=== PATIENT | female | born 1955 | race Caucasian/White ===

== ENCOUNTER 2016-08-31 08:49 | Observation (INO) | payer MEDICAID, OTHER ==
[~2016-08-31] VITALS: Ht 160 cm; Wt 43.2 kg
[2016-08-31] VITALS (12 sets, daily range): BP systolic 135–244; BP diastolic 89–126; PULSE 72–114; RESP 12–20; O2SAT 94–99
[2016-08-31] MEDS ORDERED: ASPI-973 PO (09:06)
[2016-08-31] MEDS ORDERED: FOLI1TAB18 PO (09:06)
[2016-08-31 09:18] LABS: BASOPHILS % (AUTO) 0.2 % (0-3); EOSINOPHILS % (AUTO) 0.3 % (0-5); Mean Corpuscular Volume 97.2 fL (81-100); NEUTROPHILS % (AUTO) 65.1 % (40-74); Platelet Count 451 bil/L (150-400)
[2016-08-31] MEDS ORDERED: Multivitamin w/Vit K Inj 10 ML, Thiamine Inj 100 MG, Folic Acid Inj 1 MG, Magnesium Sul... IV ONE ×5 (09:34)
--- NOTE | 2016-08-31 09:48 | DRSVH ---
PROCEDURE: CT BRAIN WITHOUT CONTRAST ([id number]) INDICATIONS: Eval for bleed. head injury from fall. TECHNIQUE: Noncontrast 4.5 mm thick angled axial sections acquired from the foramen magnum to the vertex, with c oronal reformats. COMPARISON: None. FINDINGS: Image quality: Excellent. CSF spaces: Basal cisterns are patent. No extra-axial fluid collections. The ventricles are symmet jessi in size and shape. Brain: There is an old lacunar infarct in the left basal ganglia. No intracranial bleeds or masses. There is cerebral volume loss for age, with resultant ventricular and sulcal prominence. There are periventricular and deep white matter chronic small vessel ischemic changes. There is intracranial i nternal carotid artery atherosclerosis. Skull and face: Calvarium and visualized facial bones appear intact, without suspicious lesions. Sinuses: Visualized sinuses and mastoids are clear. IMPRESSION: 1. No acute intracranial abnormalities. No intracranial bleed. 2. An old lacunar infarct left basal ganglia. 3. Moderate cerebral volume loss and chronic microvascular ischemic changes. Dictated by: Mario Valadez M.D. on 08/31/2016 at 9:43 Approved by: Mario Valadez M.D. on 08/31/2016 at 9:47
[2016-08-31 09:51] LABS: TROPONIN T < 0.010 ug/L (0.0-0.011)
[2016-08-31 09:53] LABS: Magnesium 2.2 mg/dL (1.6-2.6)
--- NOTE | 2016-08-31 10:20 | DRSVH ---
PROCEDURE: X-RAY CHEST ONE VIEW, PORTABLE ([id number]) INDICATIONS: SHORTNESS OF BREATH TECHNIQUE: One view of the chest was acquired. COMPARISON: None. FINDINGS: Surgical changes and devices: None. Lungs and pleura: No pleural effusions or pneumothorax. Mild apical pleural thickening. Lungs are hy perexpanded suggesting COPD. No focal infiltrate. Left nipple shadow. Mediastinum: Mediastinal contours appear normal. Heart size is normal. Aortic calcifications. Bones and chest wall: No suspicious bony lesions. Overlying soft tissues appear unremarkable. IMPRESSION: 1. Probable chronic obstructive pulmonary disease. 2. No acute cardiopulmonary abnormality. Dictated by: Martin Wang M.D. on 08/31/2016 at 10:18 Approved by: Martin Wang M.D. on 08/31/2016 at 10:19
[2016-08-31 10:29] LABS: INR 0.94 ratio
[2016-08-31] MEDS ORDERED: Alum-Mag Hydrox-Simeth 30 mL Suspension PO PRN ×2 (14:35→14:40)
[2016-08-31] MEDS ORDERED: Ondansetron 2 mg/mL 2 mL Inj IVPUSH PRN ×2 (14:35→14:40)
[2016-08-31] MEDS ORDERED: Polyethylene Glycol (PEG) 17 Gm Powder PO PRN (14:40)
[2016-08-31 14:58] LABS: APPEARANCE,URINE HAZY (CLEAR,HAZY); COLOR,URINE YELLOW (YELLOW); OCCULT BLOOD,URINE NEGATIVE (NEGATIVE); UROBILINOGEN,URINE NORMAL (NORMAL)
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
[2016-08-31] MEDS: 0.9% Sodium Chloride 1,000 ML IV SCH (15:16)
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
[2016-08-31 16:28] LABS: Phosphorus 3.3 mg/dL (2.5-4.9)
[2016-08-31] MEDS ORDERED: chlordiazePOXIDE 25 mg Capsule PO PRN (16:50)
[2016-08-31] MEDS ORDERED: Potassium Chloride 20 mEq SR Tablet PO ONE (17:10)
[2016-08-31] MEDS ORDERED: Albuterol 2.5 mg/3 mL Inhalation Solution NEB PRN (20:00)
[2016-09-01] VITALS (7 sets, daily range): BP systolic 152–174; BP diastolic 102–115; PULSE 70–80; RESP 16–20; O2SAT 97–100
[2016-09-01] MEDS: 0.9% Sodium Chloride 1,000 ML IV SCH ×2 (06:25→08:44)
[2016-09-01 07:14] LABS: Vitamin B12 1145 pg/mL (211-946)
[2016-09-01] MEDS ORDERED: Thiamine Inj 100 MG in Dextrose 5% 50 ML IV SCH (08:30)
[2016-09-01 08:31] LABS: BASOPHILS % (AUTO) 0.4 % (0-3); EOSINOPHILS % (AUTO) 1.6 % (0-5); MONOCYTES % (AUTO) 9.7 % (4-12); Mean Corpuscular Hemoglobin 33.4 pg (27.0-35.0); NEUTROPHILS % (AUTO) 59.1 % (40-74); Platelet Count 382 bil/L (150-400)
[2016-09-01 10:10] LABS: Hepatitis A Antibody IgM Negative (Negative); Hepatitis B Core Antibody IgM Negative (Negative)
--- NOTE | 2016-09-01 10:25 | PCM.PNMED ---
Subjective Date of Service Sep 01, 2016 Subjective Patient states she is feeling better today. She states she had tremors earlier this morning. Good appetite. Ambulates with assist. Patient was in sinus rhythm throughout the night. Will discontinue telemetry at this point. No symptoms of alcohol withdrawal. Exam Vital Signs Vital Sign - Last Date Time Temp Pulse Resp B/P Pulse Ox O2 Delivery O2 Flow Rate FiO2 09/01/16 08:25 36.6 75 16 174/104 99 Room Air Intake and Output 08/31/16 08/31/16 09/01/16 Cumulative From/Thru 15:00 23:00 07:00 08/31/16 08:51 - 09/01/16 06:16 Intake Total 415 ml 1469 ml 1884 ml Output Total 1050 ml 1850 ml 2900 ml Balance -635 ml -381 ml -1016 ml Intake Oral 360 ml 636 ml 996 ml IV Total 55 ml 833 ml 888 ml Output Urine Total 1050 ml 1850 ml 2900 ml # Bowel Movements 1 1 Exam General: Pleasant, older than stated age, frail female in no acute distress, appropriately interactive HEENT: Normocephalic, atraumatic. Anicteric sclerae Neck: Supple, no lymphadenopathy or thyromegaly. Cardiovascular: Regular rate and rhythm with no murmurs, rubs, or gallops appreciated Pulmonary: Poor respiratory effort, clear to auscultation bilaterally with no crackles, wheezes, or rhonchi Abdomen: Soft, non-tender, no rebound/guarding, no hepatosplenomegaly or masses appreciated, bowel tones hypoactive Extremities: No clubbing, cyanosis, edema Neurological: Cranial nerves grossly intact. Normal muscle strength, tone, and bulk, gait is not tested Psychiatric: Normal mood and affect. Alert and oriented to person, place, and time Lab and Diagnostics Lipid panel: Cholesterol 255, LDL 125 Hb A1c 5.9 Phosphorous 3 Calcium 9.2 Total creatine kinase 69 Ammonia 40 Vitamin B12 1145 AST 55 ALT 38 Result Diagram: 09/01/16 0810 09/01/16 0810 X-Rays, CTs and MRIs X-RAY CHEST ONE VIEW, PORTABLE IMPRESSION: 1. Probable chronic obstructive pulmonary disease. 2. No acute cardiopulmonary abnormality. Dictated and approved by by: Martin Wang M.D. on 08/31/2016 at 10:18 CT BRAIN WITHOUT CONTRAST IMPRESSION: 1. No acute intracranial abnormalities. No intracranial bleed. 2. An old lacunar infarct left basal ganglia. 3. Moderate cerebral volume loss and chronic microvascular ischemic changes. Dictated and approved by: Mario Valadez M.D. on 08/31/2016 at 9:43 12-lead ECG Sinus tachycardia, normal axis, Rate 105, QTC 471, biatrial enlargement, left ventricular hypertrophy, old anterior infarct. No signs of acute infarct or ischemia. Assessment & Plan Jyoti aDn is a 61-year-old female with active history of alcohol dependence who presents with two syncopal episodes, weakness, and cough. Hospital day 2. 1. Alcohol dependence, present on admission. Active -Daily alcohol use for years with multiple attempts of quitting in the past -No alcohol withdrawal symptoms at the moment -[facility] protocol -Labs: phosphorous, CPK, ammonia, Vitamin B12, acute hepatitis panel -Multivitamin by mouth daily -Folic acid 1 mg by mouth daily -Thiamine 100 mg intravenous daily x 3 days -Librium 25 mg by mouth q6h PRN -Normal saline intravenous at the rate of 100 ml/hr 2. Hypertensive urgency, present on admission. Improving -Blood pressure 244/126 in Emergency Department, 152-174/102/104 this morning -History of being on lisinopril in the past, which was not tolerated by the patient because of the cough -Start labetalol,100 mg by mouth twice a day -Continue monitor blood pressure 3. Shortness of breath, present on admission. Active -Reported cough and difficulties breathing over the last few weeks -Chest x-ray suggestive of probable chronic obstructive pulmonary disease -Albuterol 2 puffs inhaled, every 4 hours as needed -Supplemental oxygen as needed 4. Hypokalemia, present on admission. Active -Potassium chloride, 20 meq by mouth with food daily -Monitor labs 5. Transaminitis, present on admission. Improving -Most likely due to chronic alcohol use -AST and ALT improving -Outpatient follow up 6. Elevated glucose level, present on admission. Resolved -Blood glucose of 174 on admission; No history of diabetes -Hb A1c and lipid panel -Continue to monitor 7. Tobacco dependence, present on admission, active -Nicotine patch, 21 mg every day -Smoking cessation consultation Patient Status: Patient was admitted under inpatient status with expected length of stay greater than 2 midnights due to severity of presenting symptoms, complexity of treatment plan, and risk of adverse event. GI Prophylaxis: H2 paola VTE Prophylaxis: SCDs VTE Mechanical Devices: Intermittant Pneumatic CD Resuscitation Status: CPR: Attempt Resuscitation Attending Statement The patient was seen and examined together with Dr. Pereyra on 09/01/2016 and I agree with the history, exam and plan as outlined in the note above. . July Pereyra DO Sep 01, 2016 10:25 Brcie Vences MD Sep 03, 2016 17:45
--- NOTE | 2016-09-01 16:17 | PCM.DIMED ---
July Pereyra DO 09/01/16 1617: Discharge Instructions Date of Service Sep 01, 2016 Dates of Hospitalization Aug 31, 2016 at 14:20 Discharge Diagnosis Discharge Diagnosis 1. Alcohol dependence, present on admission. Active 2. Hypertensive urgency, present on admission. Improving 3. Shortness of breath, present on admission. Improving 4. Hypokalemia, present on admission. Improving 5. Transaminitis, present on admission. Improving 6. Elevated glucose level, present on admission. Resolved 7. Tobacco dependence, present on admission. Active Medication Instructions 1. To control high blood pressure please take labetalol, 100 mg by mouth twice a day. 2. For depression please take wellbutrin, 100 mg by mouth twice a day for 3 days , then increase to 100 mg three times a day. If you develop homicidal or suicidal ideations, depression exacerbation, leti, seizures, etc. please stop the medication immediately and call your primary care provider. 3. For alcohol withdrawal, take librium, 25 mg every 6 hours as needed. 4. Continue nicotine patches, 21 mg daily for two weeks. 5. Please take multivitamins daily. When you establish care with a new primary care provider at the [facility] within the next week or two, make sure you discuss all new medications you have been started on at the hospital. Your new primary care provider will be prescribing you these new medications as needed. Diet No restrictions Activity No restrictions Call your provider Fever or Chills, Shortness of breath, Bleeding, Chest pain, Vomitting, Excessive diarrhea, Weakness (unilateral) Patient Instructions Follow-up with PCP in: 1 week ([facility]) Additional Information When you established care with a primary care provider, please ask your doctor to assist you with alcoholism treatment. Brice Vences MD 09/03/16 1745: Discharge Instructions Attending's Statement The patient was seen and examined together with Dr. Pereyra on 09/01/2016 and I agree with the history, exam and plan as outlined in the note above. . July Pereyra DO Sep 01, 2016 16:17 Brice Vences MD Sep 03, 2016 17:45
[2016-09-01] MEDS ORDERED: LABE100T4 PO (16:21)
[2016-09-01] MEDS ORDERED: BUPR100T7 PO ×2 (16:22→16:28)
[2016-09-01] MEDS ORDERED: CHLO25CA10 PO (16:24)
[2016-09-01] MEDS ORDERED: NICO1PAT6 TRANSDERM (16:26)
[2016-09-01] MEDS ORDERED: MULT-1018 PO (16:27)
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
== END 2016-09-01 16:38 | disposition home or self-care (01) ==
LOC: SED 08:49 → INTOOBSV 14:20 → PCC 14:20 → OBSVTOIN 14:20 → PCC 14:34
PROVIDERS: ADMIT Hospitalist; ATTEND Internal Medicine
DX: I16.0 Hypertensive urgency (principal); R55 Syncope and collapse; F17.210 Nicotine dependence, cigarettes, uncomplicated; E87.6 Hypokalemia; R73.9 Hyperglycemia, unspecified; F10.20 Alcohol dependence, uncomplicated; R06.02 Shortness of breath
CPT/HCPCS: 36415; 70450; 71010; 80053; 80061; 81000; 82140; 82550; 82607; 82948; 83036; 83735; 84100; 84484; 85025; 85610; 86705; 86709; 87086; 87088; 87340; 87341; 93005; 96374; 96375; 96376; 97162; 99285; G0378; G0472; G0480; J2060; J3475; J7030

== ENCOUNTER 2016-09-23 13:33 | Emergency (ER) | payer OTHER ==
[~2016-09-23] VITALS: Ht 160 cm; Wt 105.0 kg
[~2016-09-23 13:33] MED LIST: ASPI-973 PO; BUPR100T7 PO; CHLO25CA10 PO; FOLI1TAB18 PO; LABE100T4 PO; MULT-1018 PO; NICO1PAT6 TRANSDERM
[2016-09-23 14:00] VITALS: BP 152/98; PULSE 102; RESP 16; O2SAT 96
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
== END 2016-09-23 16:06 | disposition home or self-care (01) ==
LOC: SED 13:33
DX: F10.129 Alcohol abuse with intoxication, unspecified (principal); F32.9 Major depressive disorder, single episode, unspecified; S00.211A Abrasion of right eyelid and periocular area, initial encounter; W54.8XXA Other contact with dog, initial encounter; Y93.89 Activity, other specified; Y92.89 Other specified places as the place of occurrence of the external cause; Y99.8 Other external cause status; F17.200 Nicotine dependence, unspecified, uncomplicated; Z79.82 Long term (current) use of aspirin; Z88.8 Allergy status to other drugs, medicaments and biological substances

== ENCOUNTER 2016-12-06 14:06 | Day surgery (SDC) | payer OTHER ==
[~2016-12-06] VITALS: Ht 160 cm; Wt 46.7 kg
[~2016-12-06 14:06] MED LIST changes: +0.9% Sodium Chloride 1,000 ML IV SCH; +LOSA25TA21 PO; +SERT20OR6 PO; +Sodium Chloride LOK Flush 10 mL Syringe IV PRN; +fentaNYL-PF 50 mCg/mL 2 mL Inj IVPUSH PRN
[2016-12-06] MEDS ORDERED: GABA-500 PO (14:55)
[2016-12-06] MEDS ORDERED: ALBU18HF INH (14:55)
[2016-12-06 15:33] VITALS: BP 171/106; PULSE 71; RESP 17; O2SAT 97
[2016-12-06 15:49] VITALS: BP 165/100; PULSE 70
--- NOTE | 2016-12-06 16:23 | PCM.ENDCOL ---
Colonoscopy Date of Service: Dec 06, 2016 Physician Shawn Nicholson MD Pre Procedure Diagnosis: Screening Post Procedure Dx & Findings: Polyp hemorrhoids diverticulosis Procedure Colonoscopy PROCEDURE IN DETAIL: Prep adequate Withdrawal time 11 minutes After unremarkable rectal examination the Olympus video colonoscope was inserted patient's anal canal and was advanced to cecum. Landmarks were identified including the ileocecal valve and appendiceal orifice. Scope was withdrawn systematically. Visualized colonic mucosa showed healthy shiny mucosa with normal healthy-appearing vasculature. The sigmoid colon, there was a 1 mm polyp was removed completely using cold forceps. In the rectum, there were total of 3 polyps. There were 2-3 mm in size. They are all removed using cold snare. Narrow banding revealed that they appeared to be adenomatous. Patient had small multiple diverticuli in the sigmoid colon and also in the ascending colon. In the rectum retroflexion was done which showed hemorrhoids. Anal canal was inspected carefully on the way out and hemorrhoids noted. Impression Polyps 4 status post complete removal Diverticuli Hemorrhoids Recommendation Repeat colonoscopy 3 years Diverticular diet Presedation Assessment Risks and Benefits Informed consent was obtained from the patient after all risks and benefits including but not limited to drug reaction, infection, pain, bleeding, perforation, as well as alternatives were discussed. Patient monitoring Continuous pulse oximetry, cardiac monitoring, blood pressure monitoring, IV access, and oxygen at 2L per nasal cannula. Periprocedural Fentanyl: Fentanyl 75mcg Incrementally Midazolam: Midazolam 3mg Incrementally Complications There were no periprocedural complications identified. Post Procedure Plan Post Procedure Recommendations 1. Restrict activities today. 2. Resume normal activities in the morning. 3. Resume medications. 4. Patient informed of normal post procedure side effects as bloating, drowsiness, blood streaking in the stool. 5. average risk CRCS. If colon polyps come back as: -Hyperplastic- can repeat colonoscopy in 10 years -Tubular adenoma- repeat colonoscopy in 5 years -Tubulovillous/villous adenoma- repeat colonoscopy in 3 years -If any dysplasia- return to clinic as soon as possible 6. Please don't hesitate to call me with any questions. Shawn Nicholson MD Dec 06, 2016 16:23
[2016-12-06 16:27] VITALS: BP 146/83; PULSE 72; O2SAT 98
[2016-12-06 16:43] VITALS: BP 158/98; PULSE 77; O2SAT 97
--- NOTE | 2016-12-10 10:02 | PATH ---
SURGICAL PATHOLOGY Attending Physician:Shawn Nicholson M.D. CASE STATUS: Signed Out PATIENT NAME: ESCOBAR CALDERÓN PID: [id number] : 1955 DATE COLLECTED:12/06/2016 00:00 SPECIMEN: 1: Colon, Polyp 2: Rectum, Biopsy CLINICAL HISTORY: SCREENING, COLON POLYPS 1. RECTO-SIGMOID POLYP 2. RECTAL POLYP X3 FINAL DIAGNOSIS: 1. Rectosigmoid Polyp, Biopsy: Tubular adenoma in one of one fragment. 2. Rectal Polyp x3, Biopsies: Tubular adenoma in two of three fragments. Hyperplastic polyp with prolapse features in one of three fragments. ICD10: K63.5 K62.1 GROSS DESCRIPTION: Received two formalin-filled containers, both labeled with the patient's name. 1. In a container labeled "rectosigmoid polyp", specimen consists of a 0.2 x 0.2 x 0.2 cm portion of tissue which is entirely submitted in cassette 1A. 2. The specimen is labeled "rectal polyps" and consists of three portions of tissue which aggregate to 0.4 x 0.4 x 0.3 cm. The specimen is entirely submitted in cassette 2A. ([facility]:[id number]) ICD-9 CODES: CPT CODES: 1: 47605 2: 57120 Electronically Signed Out Jagjit Cross MD [facility] [address], [place] [address] Technical component performed at [facility], [facility] [address], [place], [address]
== END 2016-12-06 23:59 | disposition home or self-care (01) ==
LOC: END 14:06
PROVIDERS: ATTEND Internal Medicine
DX: Z12.11 Encounter for screening for malignant neoplasm of colon (principal); D12.5 Benign neoplasm of sigmoid colon; D12.8 Benign neoplasm of rectum; K62.1 Rectal polyp; K64.9 Unspecified hemorrhoids; K57.30 Diverticulosis of large intestine without perforation or abscess without bleeding; I10 Essential (primary) hypertension; J44.9 Chronic obstructive pulmonary disease, unspecified; F32.9 Major depressive disorder, single episode, unspecified; M54.42 Lumbago with sciatica, left side; G89.29 Other chronic pain; F17.210 Nicotine dependence, cigarettes, uncomplicated; F12.90 Cannabis use, unspecified, uncomplicated; F10.10 Alcohol abuse, uncomplicated; Z79.82 Long term (current) use of aspirin
CPT/HCPCS: 45380; 45385; 88305; 99152; 99153; J2250; J3010; J7030